=== PATIENT | male | born 1980 | race Caucasian/White ===

== ENCOUNTER → 2017-10-01 | Outpatient (CLI) | payer MEDICAID, SELFPAY | PROVIDERS: Visit Provider Physician Assistant | DX: I10 Essential (primary) hypertension (principal); E03.9 Hypothyroidism, unspecified | CPT/HCPCS: 80053; 80061; 82306; 82607; 82746; 83036; 85025; 86704; 86708; 86803; 87340; 87902 ==

== ENCOUNTER → 2017-10-20 11:59 | Outpatient (REF) | payer MEDICAID, SELFPAY ==
[2017-10-25 19:42] LABS: Testosterone, Total, LC/MS 253.6 ng/dL (264.0-916.0)
[2017-10-27 11:31] LABS: Testosterone,Free 2.1 pg/mL (8.7-25.1)
== END ==
LOC: LAB 11:59
PROVIDERS: Visit Provider Physician Assistant
DX: Z00.00 Encounter for general adult medical examination without abnormal findings (principal); Z79.899 Other long term (current) drug therapy
CPT/HCPCS: 84402

== ENCOUNTER 2022-04-07 19:59 | Emergency (ER) | payer MEDICAID, SELFPAY ==
[2022-04-07 19:54] VITALS: BP 158/104; PULSE 99; RESP 18; TEMP 36.5; O2SAT 99; BMI 28.1
[2022-04-07 19:55] VITALS: BMI 28.1
--- NOTE | 2022-04-07 19:55 | CT_ITS ---
PROCEDURE INFORMATION: Exam: CT Abdomen And Pelvis Without Contrast Exam date and time: 04/07/2022 8:08 PM Age: 41 years old Clinical indication: Abdominal pain; Patient HX: No prior contrast or recent contrast studies; Additional info: Abd cano TECHNIQUE: Imaging protocol: Computed tomography of the abdomen and pelvis without contrast. Radiation optimization: All CT scans at this facility use at least one of these dose optimization techniques: automated exposure control; mA and/or kV adjustment per patient size (includes targeted exams where dose is matched to clinical indication); or iterative reconstruction. COMPARISON: No relevant prior studies available. FINDINGS: Liver: Parenchymal enhancement is not evaluated without contrast. No hepatomegaly. Gallbladder and bile ducts: Mildly distended gallbladder without radiodense stone. Pancreas: Parenchymal enhancement is not evaluated without contrast. No ductal dilation. Spleen: Parenchymal enhancement is not evaluated without contrast. No splenomegaly. Adrenal glands: No mass. Kidneys and ureters: Parenchymal enhancement is not evaluated without contrast. No hydronephrosis. Stomach and bowel: No obstruction. No mucosal thickening. Appendix: No evidence of appendicitis. Intraperitoneal space: No free air. No significant fluid collection. Vasculature: Calcified atherosclerosis. No aneurysm. Lymph nodes: No enlarged lymph nodes. Urinary bladder: No acute abnormality. Reproductive: No acute abnormality. Bones/joints: No acute fracture. Soft tissues: Limited evaluation without contrast. No significant soft tissue swelling. IMPRESSION: Limited noncontrast evaluation without definite acute findings.
[2022-04-07 20:19] LABS: Basophils # 0.1 K/mm3 (0-0.2); Eosinophils # 0.1 K/mm3 (0.0-0.4); Eosinophils % 1.7 % (0.1-12.0); Hematocrit 44.1 % (42.0-52.0); Hemoglobin 14.6 g/dL (14.1-18.0); Lymphocytes # 1.7 K/mm3 (0.7-4.5); Lymphocytes % 20.9 % (10-50); Mean Corpuscular HGB Conc 33.1 g/dL (31.8-35.4); Mean Corpuscular Volume 87.7 fl (80-94); Mean Platelet Volume 7.4 fl (7.4-10.4); Monocytes # 0.3 K/mm3 (0.1-1.0); Monocytes % 3.4 % (1.7-9.3); Neutrophils # 5.9 K/mm3 (1.8-7.8); Platelet Count 386 K/mm3 (142-424); Red Blood Count 5.03 M/mm3 (4.60-6.20); Red Cell Distribution Width 14.1 % (11.5-17.5)
--- NOTE | 2022-04-07 20:21 | PC.NURSE ---
pt arrived with a 20g iv in the left ac. would not drawl back and when flushed the pt stateed there was pain so the IV was pulled and I inserted an 18 in the right. not the pt is an iv drug user and there is a scabbed over injection sight to the right of the line
--- NOTE | 2022-04-07 20:28 | XR_ITS ---
PROCEDURE INFORMATION: Exam: XR Chest Exam date and time: 04/07/2022 8:27 PM Age: 41 years old Clinical indication: Pain; Other: Abdomen; Additional info: Abd pain TECHNIQUE: Imaging protocol: Radiologic exam of the chest. Views: 2 views. COMPARISON: CT ABDOMEN PELVIS WO CON 04/07/2022 8:08 PM FINDINGS: Lungs: No consolidation. Pleural spaces: No pneumothorax. Heart/Mediastinum: No cardiomegaly. Bones/joints: No acute fracture. IMPRESSION: No acute findings.
--- NOTE | 2022-04-07 20:28 | [facility].EDUROGM ---
ED Disposition Clinical Impression: IVDU (intravenous drug user), Amphetamine use Abdominal pain Qualifiers: Abdominal location: right upper quadrant Qualified Code(s): R10.11 - Right upper quadrant pain Disposition: Home, Self-Care Condition on Discharge: Good Instructions: DI for Acute Abdominal Pain, DI for Substance Use Disorder Additional Instructions: call pcp for follow up and consider drug rehab Referrals: Darvin Keys MD [Primary Care Provider] - - Critical Care Critical Care Time: No Attestation: On 04/07/22, the high probability of a clinically significant, sudden or life threatening deterioration of the following system(s) required my full and direct attention, intervention and personal management. The time I documented below is in addition to time spent performing reported procedures but includes the following listed in this critical care notation. Medical Decision Making - Medical Records Medical records reviewed: Yes: I reviewed the patient's medical records. - [facility] Inquiry Pt receiving controlled substance: No Vital Signs: 04/07/22 19:54 04/07/22 21:00 Temperature 97.7 F Temperature Source Oral Pulse Rate 95 H Pulse Rate [Right] 99 H Respiratory Rate 18 Blood Pressure 134/90 Blood Pressure [Right Arm] 158/104 H Blood Pressure Mean [Right Arm] 122 02 Sat by Pulse Oximetry 99 100 Oxygen Delivery Method Room Air - Lab Data Lab results reviewed: Yes: I reviewed the patient's lab results. Lab Results 04/07/22 20:07: WBC 8.0, RBC 5.03, Hgb 14.6, Hct 44.1, MCV 87.7, MCH 29.0, MCHC 33.1, RDW 14.1, Plt Count 386, MPV 7.4, Neut % (Auto) 73.0, Lymph % (Auto) 20.9, Swisher % (Auto) 3.4, Eos % (Auto) 1.7, Baso % (Auto) 1.0, Neut # (Auto) 5.9, Lymph # (Auto) 1.7, Swisher # (Auto) 0.3, Eos # (Auto) 0.1, Baso # (Auto) 0.1 04/07/22 20:07: Sodium 139, Potassium 3.8, Chloride 105, Carbon Dioxide 28, Anion Gap 9.8, BUN 11, Creatinine 0.90, Estimated Creat Clear 126, Estimated GFR 93, Est GFR ( Amer) 113, Glucose 110 H, Calcium 9.4, Total Bilirubin 0.4, AST 21, ALT 15, Alkaline Phosphatase 55, C-Reactive Protein 7.3 H, Total Protein 7.2, Albumin 4.2, Globulin 3.0, Albumin/Globulin Ratio 1.4, Amylase 118 H, Lipase 314 H 04/07/22 20:07: ESR 10 04/07/22 20:07: Procalcitonin 1.41 04/07/22 20:34: Lactate 1.8 04/07/22 20:57: Urine Color Yellow, Urine Appearance Clear, Urine pH 8.5, Ur Specific Johnson 1.020, Urine Protein Negative, Urine Glucose (UA) Negative, Urine Ketones Negative, Urine Blood Negative, Urine Nitrate Negative, Urine Bilirubin Negative, Urine Urobilinogen 1.0, Ur Leukocyte Esterase Negative 04/07/22 20:57: Urine Opiates Screen Negative, Urine Methadone Screen Negative, Ur Barbituates Screen Negative, Ur Phencyclidine Scrn Negative, Ur Amphetamines Screen Positive H, U Benzodiazepines Scrn Negative, Urine Cocaine Screen Negative, U Marijuana (THC) Screen Negative Result diagrams: 04/07/22 20:07 04/07/22 20:07 Orders (Tests/Meds): ED MEDICATIONS Generic Name Dose Route Start Last Admin Trade Name Freq PRN Reason Stop Dose Admin Sodium Chloride 1,000 mls @ 999 mls/hr 04/07/22 21:45 Sod Chlor 0.9% 1000ml Bag IV 04/07/22 22:45 .Q1H1M AKUA Sodium Chloride 8 ml 04/07/22 19:56 Sodium Chloride 0.9% 10ml Vial IV 05/07/22 19:55 NEEDED PRN dilute pepcid Discontinued Medications Generic Name Dose Route Start Last Admin Trade Name Freq PRN Reason Stop Dose Admin Famotidine 20 mg 04/07/22 19:56 04/07/22 20:12 Famotidine 20mg/2ml Vial IV 04/07/22 19:57 20 mg ONCE ONE Administration Sodium Chloride 1,000 mls @ 999 mls/hr 04/07/22 20:00 04/07/22 20:13 Sod Chlor 0.9% 1000ml Bag IV 04/07/22 21:00 999 mls/hr .Q1H1M AKUA Administration Ketorolac Tromethamine 30 mg 04/07/22 19:56 04/07/22 20:13 Ketorolac 30mg/Ml Vial IV 04/07/22 19:57 30 mg ONCE ONE Administration Metoclopramide HCl 10 mg 04/07/22 19:56 04/07/22 2
[2022-04-07 20:29] LABS: Alanine Aminotransferase 15 U/L (12-78); Albumin Level 4.2 g/dl (3.5-5.0); Albumin/Globulin Ratio 1.4 (1.1-1.8); Alkaline Phosphatase 55 U/L (38-126); Amylase 118 U/L (30-110); Anion Gap 9.8 mEq/L (5-15); Aspartate Amino Transferase 21 U/L (17-59); Bilirubin,Total 0.4 mg/dl (0.2-1.3); Blood Urea Nitrogen 11 mg/dl (9-20); Calcium 9.4 mg/dl (8.4-10.2); Carbon Dioxide 28 mmol/L (22.0-30.0); Chloride 105 mmol/L (98-107); Creatinine Clearance Estimated 126 mL/min (50-200); Estimated Glomerular Filt Rate 93 ml/min (>60); GFR (African American) 113 ML/MIN (>60); Glucose 110 mg/dl (74-100); Lipase 314 U/L (23-300); Potassium 3.8 mmoL/L (3.5-5.1); Sodium 139 mmol/L (136-145); Total Protein,Serum 7.2 g/dl (6.3-8.2)
[2022-04-07 20:35] LABS: C-Reactive Protein 7.3 mg/L (0-4)
--- NOTE | 2022-04-07 20:36 | PC.NURSE ---
Pt gone to [facility]
[2022-04-07 20:47] LABS: Lactic Acid 1.8 mmol/L (0.7-2.1)
[2022-04-07 20:49] LABS: Procalcitonin 1.41 ng/mL (0.0-2.0)
[2022-04-07 20:57] LABS: Erythrocyte Sedimentation Rate 10 mm/hr (0-15)
[2022-04-07 21:00] VITALS: BP 134/90; PULSE 95; O2SAT 100
[2022-04-07 21:01] LABS: Microscopic, Urine URINE MICROSCOPIC (MICROSCOPIC)
[2022-04-07 21:30] LABS: Appearance,Urine CLEAR (Clear); Bilirubin,Urine Negative (Negative); Blood, Urine Negative (Negative); Color,Urine YELLOW (Yellow); Glucose,Urine (UA) Negative (Negative); Ketones,Urine Negative (Negative); Leukocyte Esterase,Urine Negative (Negative); Nitrate,Urine Negative (Negative); PH,Urine 8.5 (5.0-8.5); Protein,Urine Negative (Negative)
[2022-04-07 21:41] LABS: Amphetamine/Metha Screen,Urine Positive ng/ml (<1000)
[2022-04-07 21:42] LABS: Barbiturates Screen,Urine Negative ng/ml (<200); Benzodiazepines Screen,Urine Negative ng/ml (<200)
[2022-04-07 21:43] LABS: Cannabinoid Screen,Urine Negative ng/ml (<50)
[2022-04-07 21:44] LABS: Cocaine Screen,Urine Negative ng/ml (<300); Methadone Screen,Urine Negative ng/ml (<300)
[2022-04-07 21:45] LABS: Opiate Screen,Urine Negative ng/ml (<300); Phencyclidine Screen,Urine Negative ng/ml (<25)
[2022-04-07 22:02] VITALS: BP 141/92; PULSE 90; RESP 16; TEMP -7.7; TEMP 18; O2SAT 99
== END 2022-04-07 22:17 | disposition home or self-care (01) ==
PROVIDERS: Emergency Provider Emergency Medicine; PCP Emergency Medicine
DX: F15.90 Other stimulant use, unspecified, uncomplicated (principal); R10.11 Right upper quadrant pain; Z88.0 Allergy status to penicillin
CPT/HCPCS: 71046; 74176; 80053; 80305; 81001; 82150; 83605; 83690; 84145; 85025; 85651; 86140; 87040; 87077; 87186; 96365; 96366; 96375; 99284; J2405